=== PATIENT | female | born 1960 | race Caucasian/White ===

== ENCOUNTER 2025-02-24 10:47 | Day surgery (SDC) | payer BC, MEDICARE ==
[~2025-02-24 10:47] MED LIST: Midazolam 1 MG/ML 2 ML SDV ONE; Propofol 200 MG/20 ML SDV ONE; Sodium Chloride 0.9% 10 ML Syringe FLUSH PRN
[2025-02-24] MEDS: Lactated Ringers 1,000 ML IV SCH (11:20)
[2025-02-24] MEDS ORDERED: Glycopyrrolate 0.2 MG/ML SDV IVPUSH ONE (12:00)
[2025-02-24 14:06] VITALS: BP 113/61; PULSE 62
== END 2025-02-24 13:54 | disposition home or self-care (01) ==
LOC: LL.SDS 10:47
PROVIDERS: ATTEND Surgery
DX: K29.51 Unspecified chronic gastritis with bleeding (principal); E78.2 Mixed hyperlipidemia; Z86.0100 Personal history of colon polyps, unspecified; Z79.899 Other long term (current) drug therapy; Z88.2 Allergy status to sulfonamides
CPT/HCPCS: 00813; 88305; 88342; J1596; J2250; J2704; J7120